=== PATIENT | female | born 1985 | race Two or more races ===

== ENCOUNTER 2022-04-28 09:00 | Outpatient (CLI) | payer OTHER | END 2022-04-28 09:21 | disposition home or self-care (01) | LOC: RX STUDY 09:00 | PROVIDERS: ATTEND Obstetrics & Gynecology | DX: N97.0 Female infertility associated with anovulation (principal) ==

== ENCOUNTER 2022-05-28 09:00 | Day surgery (SDC) | payer OTHER ==
[~2022-05-28 09:00] MED LIST: AMBIEN10 MG PO
== END 2022-05-28 21:35 | disposition home or self-care (01) ==
LOC: CIR.AMB 09:00
PROVIDERS: ATTEND Obstetrics & Gynecology
DX: N97.1 Female infertility of tubal origin (principal); Z20.822 Contact with and (suspected) exposure to COVID-19

== ENCOUNTER 2023-11-26 13:54 | Outpatient (CLI) | payer OTHER | END 2023-11-26 14:53 | disposition home or self-care (01) | LOC: NST 13:54 | PROVIDERS: ATTEND Obstetrics & Gynecology | DX: Z34.83 Encounter for supervision of other normal pregnancy, third trimester (principal) ==

== ENCOUNTER 2023-12-08 10:13 | Outpatient (CLI) | payer OTHER | END 2023-12-08 11:34 | disposition home or self-care (01) | LOC: NST 10:13 | PROVIDERS: ATTEND Obstetrics & Gynecology Gynecology | DX: Z34.83 Encounter for supervision of other normal pregnancy, third trimester (principal) ==

== ENCOUNTER 2023-12-18 09:15 | Outpatient (CLI) | payer OTHER | END 2023-12-18 10:05 | disposition home or self-care (01) | LOC: NST 09:15 | PROVIDERS: ATTEND Obstetrics & Gynecology | DX: Z34.83 Encounter for supervision of other normal pregnancy, third trimester (principal) ==